=== PATIENT | female | born 1945 | race Caucasian/White ===

== ENCOUNTER 2020-06-20 08:23 | Outpatient (REF) | payer MEDICARE, SELFPAY ==
--- NOTE | 2020-06-20 08:29 | US_ITS ---
EXAMINATION: US ABDOMEN LIMITED CLINICAL INFORMATION: Right upper quadrant pain. Question gallstones. COMPARISON: None. TECHNIQUE: Real-time imaging of the right upper quadrant abdominal viscera. FINDINGS: PANCREAS: Normal. LIVER: The liver is normal in size, contour and density. There is a small echogenic calcification or granuloma right hepatic lobe measuring 0.6 x 0.9 x 1.1 cm. No focal hepatic lesion. There is no intrahepatic biliary duct dilatation seen. GALLBLADDER: There is mild tenderness in the gallbladder. The gallbladder is physiologically distended without evidence of stones, sludge, polyps, wall thickening or pericholecystic fluid. COMMON BILE DUCT: Normal in caliber measuring 0.7 cm in diameter. RIGHT KIDNEY: Normal. No hydronephrosis. No renal calculi or focal parenchymal lesions. The kidney measures 11.9 cm in maximum dimension. FREE FLUID: None. US/US abdomen limited IMPRESSION: Small calcification versus granuloma right hepatic lobe. The gallbladder, pancreas and the right kidney is unremarkable.
[2020-06-20 11:12] LABS: MANUAL DIFF FLAG NO
[2020-06-20 11:32] LABS: Basophils Percent Auto 0.4 % (0-2); Eosinophils Percent Auto 0.9 % (0-4); Hematocrit 36.3 % (37-47); Hemoglobin 11.9 g/dl (12.0-16.0); Imm Gran Abs Auto 0.02 X10*3/uL (0.00-0.03); Imm Gran Pct Auto 0.4 % (0.0-0.4); Lymphocytes Absolute Auto 1.7 X10*3/uL (1.2-4.9); Lymphocytes Percent Auto 38.1 % (20-40); Mean Corpuscular HGB Conc 32.8 g/dl (31.0-35.0); Mean Corpuscular Hemoglobin 30.5 pg (27.0-33.0); Mean Corpuscular Volume 93.1 fL (80-98); Monocytes Absolute Auto 0.4 X10*3/uL (0.1-1.2); Neutrophils Absolute Auto 2.3 X10*3/uL (2.0-8.3); Neutrophils Percent Auto 51.2 % (45-73); Platelet Count 266 X10*3/uL (160-400); Red Cell Distribution Width 13.2 % (11.0-16.0); White Blood Count 4.5 X10*3/uL (4.8-10.8)
[2020-06-20 11:50] LABS: Alanine Aminotransferase 21 U/L (0-31); Alkaline Phosphatase 89 U/L (39-117); Amylase 38 U/L (28-100); Anion Gap 14 (12-20); Aspartate Amino Transferase 21 U/L (5-31); Bilirubin Total 0.5 mg/dL (0.0-1.0); Blood Urea Nitrogen 15 mg/dL (9-16); Calcium 8.5 mg/dL (8.4-10.2); Carbon Dioxide 25 mmol/L (22-29); Chloride 106 mmol/L (96-108); Estimated Glomerular Filt Rate > 60; Glucose Random 98 mg/dL (60-115); Lipase 26 U/L (8-78); Potassium 4.4 mmol/l (3.3-5.1); Sodium 141 mmol/L (135-145); Total Protein 6.2 g/dL (6.5-8.0)
== END 2020-06-20 08:24 | disposition home or self-care (01) ==
LOC: HO.HMGCX 08:23
PROVIDERS: PCP Internal Medicine; Visit Provider Nurse Practitioner Family
DX: R10.9 Unspecified abdominal pain (principal)
CPT/HCPCS: 36415; 76705; 80053; 82150; 83690; 85025